=== PATIENT | female | born 1950 | race Caucasian/White ===

== ENCOUNTER → 2016-10-16 | Outpatient (CLI) | payer MEDICARE ==
--- NOTE | 2016-10-16 10:05 | REPMRS ---
Patient History The patient states she had a clinical breast exam in 09/2016. Patient is postmenopausal. No known family history of cancer. Excisional biopsy of the right breast, 1975. Digital Woman Screen Mammo: October 16, 2016 - Exam #: [id number] Bilateral CC and MLO view(s) were taken. Technologist: Emily Alexander, Technologist Prior study comparison: November 17, 2014, digital woman screen mammo performed at [facility]. 2013, bilateral digital mammo screening bilat, performed at [facility]. FINDINGS: There are scattered fibroglandular densities. There has been no change in the appearance of the mammogram from the prior studies. There is a mild amount of residual fibroglandular tissue which is fairly symmetric. There is no interval development of dominant mass, architectural distortion, or clustered microcalcification suggestive of malignancy. ASSESSMENT: BI-RADS/ACR category 1 mammogram. Negative. Recommendation Routine screening mammogram in 1 year (for women over age 40). This mammogram was interpreted with the aid of an FDA-approved computer-aided dectection system. Electronically Signed By: Matt Nagel MD 10/16/16 [id number]
== END ==
LOC: M WHC 09:03
PROVIDERS: ATTEND Nurse Practitioner Family
DX: Z01.419 Encounter for gynecological examination (general) (routine) without abnormal findings (principal); Z12.31 Encounter for screening mammogram for malignant neoplasm of breast; Z78.0 Asymptomatic menopausal state; Z12.12 Encounter for screening for malignant neoplasm of rectum
CPT/HCPCS: 82270; G0101; G0202

== ENCOUNTER → 2017-02-11 | Outpatient (CLI) | payer MEDICARE ==
[~2017-02-11] VITALS: Ht 175.3 cm; Wt 90.3 kg
[~2017-02-11] MED LIST: BIOT50004 PO; CENT1TAB PO; LIDOCAINE 2% INJ 100 MG/5 ML SDV (FOR ANES.) As Ordered ONE; LISI20TA PO; NS 1,000 ML IV ONE; PROPOFOL 200 MG/20 ML VIAL As Ordered ONE; TUMS1000 PO; VITA100067 PO; VITA500T3 PO
--- NOTE | 2017-02-11 13:26 | ROOR ---
Patient Name: Sadia Shields Procedure Date: 02/11/2017 1:07 PM Date of : 1950 Age: 66 Room: [facility] Gender: Female Note Status: Finalized Procedure: Total Colonoscopy to Cecum Indications: High risk colon cancer surveillance: Personal history of colonic polyps, Last colonoscopy: 2008 Providers: Srikanth Self MD Referring MD: Anson Sanchez MD Requesting Provider: Medicines: Monitored Anesthesia Care Complications: No immediate complications. Procedure: Pre-Anesthesia Assessment: - The heart rate, respiratory rate, oxygen saturations, blood pressure, adequacy of pulmonary ventilation, and response to care were monitored throughout the procedure. The Colonoscope was introduced through the anus and advanced to the cecum, identified by appendiceal orifice and ileocecal valve. The colonoscopy was performed without difficulty. The patient tolerated the procedure well. The quality of the bowel preparation was excellent. Findings: The perianal and digital rectal examinations were normal. Non-bleeding internal hemorrhoids were found during retroflexion. The hemorrhoids were small and Grade I (internal hemorrhoids that do not prolapse). Scattered small-mouthed diverticula were found in the recto-sigmoid colon, sigmoid colon and descending colon. The exam was otherwise without abnormality on direct and retroflexion views. Impression: - Non-bleeding internal hemorrhoids. - Diverticulosis in the recto-sigmoid colon, in the sigmoid colon and in the descending colon. - The examination was otherwise normal on direct and retroflexion views. - No specimens collected. - The exam was otherwise normal to the cecum. Recommendation: - Patient has a contact number available for emergencies. The signs and symptoms of potential delayed complications were discussed with the patient. Return to normal activities tomorrow. Written discharge instructions were provided to the patient. - High fiber diet. - Discharge patient to home. - Continue present medications. - Repeat colonoscopy in 5 years for surveillance. - Return to referring physician. - The findings and recommendations were discussed with the patient's family. Srikanth Self MD Srikanth Self MD 02/11/2017 1:25:55 PM This report has been signed electronically. Number of Addenda: 0 Note Initiated On: 02/11/2017 1:07 PM Estimated Blood Loss: Estimated blood loss: none.
[2017-02-11 14:00] VITALS: BP 102/59
== END | disposition home or self-care (01) ==
LOC: M OPP 12:21
PROVIDERS: ATTEND Internal Medicine Gastroenterology
DX: Z12.11 Encounter for screening for malignant neoplasm of colon (principal); K64.0 First degree hemorrhoids; K57.30 Diverticulosis of large intestine without perforation or abscess without bleeding; Z86.010 Personal history of colon polyps; I10 Essential (primary) hypertension; M54.9 Dorsalgia, unspecified; Z78.0 Asymptomatic menopausal state; G47.8 Other sleep disorders; R06.83 Snoring; G47.30 Sleep apnea, unspecified; Z87.891 Personal history of nicotine dependence; Z79.899 Other long term (current) drug therapy

== ENCOUNTER → 2017-12-10 | Outpatient (REF) | payer MEDICARE ==
[2017-12-10 11:50] LABS: HEMATOCRIT 45.4 % (36.0-47.0); HEMOGLOBIN 15.4 g/dl (12.0-15.5); MEAN CORPUSCULAR HGB CONC 33.9 g/dl (32.0-36.5); MEAN CORPUSCULAR VOLUME 94.4 fl (80.0-96.0); PLATELET COUNT, AUTOMATED 293 10^3/uL (150-450); RED BLOOD COUNT 4.81 10^6/uL (4.00-5.40); WHITE BLOOD COUNT 9.3 10^3/uL (4.0-10.0)
[2017-12-10 11:54] LABS: APPEARANCE, URINE HAZY (CLEAR); BACTERIA, URINE AUTO 1+ (NEGATIVE); BILIRUBIN, URINE AUTO NEGATIVE (NEGATIVE); BLOOD, URINE BLOOD NEGATIVE (NEGATIVE); COLOR, URINE YELLOW (YELLOW); GLUCOSE, URINE (UA) AUTO NEGATIVE (NEGATIVE); KETONE, URINE AUTO NEGATIVE (NEGATIVE); LEUKOCYTE ESTERASE, URINE AUTO 3+ (NEGATIVE); MUCUS, URINE SMALL (NEGATIVE); NITRITE, URINE AUTO NEGATIVE (NEGATIVE); PROTEIN, URINE AUTO NEGATIVE (NEGATIVE); RBC, URINE AUTO 4 /HPF (0-3); SPECIFIC GRAVITY URINE AUTO 1.015 (1.002-1.035); SQUAMOUS EPITHELIAL CELL UR AU 2 /HPF (0-6); UROBILINOGEN, URINE AUTO 0.2 mg/dL (0.0-2.0); WBC, URINE AUTO 2 /HPF (0-3)
[2017-12-10 12:19] LABS: ALBUMIN 3.7 GM/DL (3.2-5.2); ALBUMIN/GLOBULIN RATIO 0.95 (1.00-1.93); ALKALINE PHOSPHATASE 79 U/L (45-117); ALT/SGPT 29 U/L (12-78); ANION GAP 7 MEQ/L (8-16); AST/SGOT 21 U/L (7-37); BILIRUBIN,TOTAL 0.5 MG/DL (0.2-1.0); BLOOD UREA NITROGEN 20 MG/DL (7-18); CALCIUM LEVEL 9.3 MG/DL (8.8-10.2); CARBON DIOXIDE LEVEL 27 MEQ/L (21-32); CHLORIDE LEVEL 110 MEQ/L (98-107); CHOLESTEROL LEVEL 202 MG/DL (<200); CHOLESTEROL RISK RATIO 4.122 (<5); CREATININE FOR GFR 0.88 MG/DL (0.55-1.30); GLOMERULAR FILTRATION RATE > 60.0 (>45); GLUCOSE, FASTING 105 MG/DL (70-100); HDL CHOLESTEROL 49 MG/DL (>40); LDL CHOLESTEROL 102.2 MG/DL (<100); NON-HDL-C 153 MG/DL; POTASSIUM SERUM 4.7 MEQ/L (3.5-5.1); SODIUM LEVEL 144 MEQ/L (136-145); TOTAL PROTEIN 7.6 GM/DL (6.4-8.2); TRIGLYCERIDES LEVEL 254 MG/DL (<150)
[2017-12-10 12:29] LABS: MALB URINE SIEMENS 10.3 MG/L
== END ==
LOC: M SFHCPLAZ 09:04
DX: R41.3 Other amnesia (principal); I10 Essential (primary) hypertension; E78.00 Pure hypercholesterolemia, unspecified; R73.01 Impaired fasting glucose
CPT/HCPCS: 80053

== ENCOUNTER → 2017-12-16 | Outpatient (CLI) | payer MEDICARE | LOC: M WHC 13:06 | DX: Z12.31 Encounter for screening mammogram for malignant neoplasm of breast (principal) | CPT/HCPCS: 77067 ==

== ENCOUNTER → 2017-12-27 | Outpatient (CLI) | payer MEDICARE | LOC: M SLEEP HO 09:20 | DX: R29.818 Other symptoms and signs involving the nervous system (principal) | CPT/HCPCS: G0399 ==

== ENCOUNTER → 2018-11-20 | Outpatient (REF) | payer MEDICARE ==
[~2018-11-20] MED LIST changes: -LIDOCAINE 2% INJ 100 MG/5 ML SDV (FOR ANES.) As Ordered ONE; -NS 1,000 ML IV ONE; -PROPOFOL 200 MG/20 ML VIAL As Ordered ONE
== END ==
LOC: M SFHCPLAZ 18:30
PROVIDERS: ATTEND Dermatology
DX: C44.329 Squamous cell carcinoma of skin of other parts of face (principal); L57.0 Actinic keratosis; L57.8 Other skin changes due to chronic exposure to nonionizing radiation

== ENCOUNTER → 2018-12-04 | Outpatient (REF) | payer MEDICARE ==
[2018-12-04 11:55] LABS: HEMATOCRIT 46.7 % (36.0-47.0); HEMOGLOBIN 14.9 g/dl (12.0-15.5); MEAN CORPUSCULAR HEMOGLOBIN 30.8 pg (27.0-33.0); MEAN CORPUSCULAR HGB CONC 31.9 g/dl (32.0-36.5); MEAN CORPUSCULAR VOLUME 96.7 fl (80.0-96.0); PLATELET COUNT, AUTOMATED 285 10^3/uL (150-450); RED BLOOD COUNT 4.83 10^6/uL (4.00-5.40)
[2018-12-04 12:41] LABS: ALT/SGPT 49 U/L (12-78); BILIRUBIN,TOTAL 0.6 MG/DL (0.2-1.0); BLOOD UREA NITROGEN 28 MG/DL (7-18); CALCIUM LEVEL 9.6 MG/DL (8.8-10.2); CARBON DIOXIDE LEVEL 27 MEQ/L (21-32); CHLORIDE LEVEL 108 MEQ/L (98-107); CHOLESTEROL LEVEL 198 MG/DL (<200); CHOLESTEROL RISK RATIO 3.355 (<5); CREATININE FOR GFR 0.91 MG/DL (0.55-1.30); GLOMERULAR FILTRATION RATE > 60.0 (>39); GLUCOSE, FASTING 94 MG/DL (70-100); HDL CHOLESTEROL 59 MG/DL (>40); LDL CHOLESTEROL 120 MG/DL (<100); MAGNESIUM LEVEL 2.1 MG/DL (1.8-2.4); NON-HDL-C 139 MG/DL; POTASSIUM SERUM 4.4 MEQ/L (3.5-5.1); SODIUM LEVEL 142 MEQ/L (136-145); THYROID STIMULATING HORMONE 0.332 uIU/ML (0.358-3.740); TOTAL 25(OH) VITAMIN D 55.7 NG/ML (30.0-100.0); TOTAL PROTEIN 7.4 GM/DL (6.4-8.2); TRIGLYCERIDES LEVEL 97 MG/DL (<150)
== END ==
LOC: M SFHCPLAZ 08:54
PROVIDERS: ATTEND Internal Medicine
DX: K21.9 Gastro-esophageal reflux disease without esophagitis (principal); Z86.010 Personal history of colon polyps; I10 Essential (primary) hypertension; E78.00 Pure hypercholesterolemia, unspecified; F34.1 Dysthymic disorder; Z00.00 Encounter for general adult medical examination without abnormal findings; M85.89 Other specified disorders of bone density and structure, multiple sites; Z79.899 Other long term (current) drug therapy

== ENCOUNTER → 2018-12-24 | Outpatient (CLI) | payer MEDICARE ==
--- NOTE | 2018-12-24 11:38 | REPMRS ---
Patient History The patient states she had a clinical breast exam in 11/2018. Patient is postmenopausal and has history of basal and squamous cell skin cancer at age 66. No known family history of cancer. Excisional biopsy of the right breast, 1975. No Hormone Replacement Therapy 3D TOMOSYNTHESIS WAS PERFORMED. Digital Woman Screen Mammo: December 24, 2018 - Exam #: [id number] Bilateral CC and MLO view(s) were taken. Technologist: Emily Alexander, Technologist Prior study comparison: December 16, 2017, digital woman screen mammo performed at [facility]. October 16, 2016, digital woman screen mammo performed at [facility]. FINDINGS: The breast tissue is heterogeneously dense. This may lower the sensitivity of mammography. There has been no change in the appearance of the mammogram from the prior studies. There is a moderate amount of residual fibroglandular tissue which is fairly symmetric. There is no interval development of dominant mass, areas of architectural distortion, or clustered microcalcification typical of malignancy. Assessment: BI-RADS/ACR category 1 mammogram. Negative Mammogram. Recommendation Routine screening mammogram in 1 year (for women over age 40). This mammogram was interpreted with the aid of an FDA-approved computer-aided dectection system. Electronically Signed By: Matt Nagel MD 12/24/18 [id number]
== END ==
LOC: M WHC 09:30
PROVIDERS: ATTEND Nurse Practitioner Family
DX: Z01.419 Encounter for gynecological examination (general) (routine) without abnormal findings (principal); Z12.31 Encounter for screening mammogram for malignant neoplasm of breast; Z78.0 Asymptomatic menopausal state; Z85.828 Personal history of other malignant neoplasm of skin; Z86.018 Personal history of other benign neoplasm
CPT/HCPCS: 77063; 77067; G0101

== ENCOUNTER → 2019-01-14 | Outpatient (CLI) | payer MEDICARE ==
--- NOTE | 2019-01-15 13:30 | DEXA ---
AP SPINE L1 - L4 0.893 -2.4 -0.8 LT FEMUR TOTAL 0.768 -1.9 -0.4 LT NECK 0.753 -2.0 -0.4 RT FEMUR TOTAL 0.767 -1.9 -0.4 RT NECK 0.796 -1.7 0.0 TOTAL BODY TOTAL OTHER COMMENTS: There is low bone density of the spine and hips. The density of the spine has decreased 5.3% since the initial exam on 12/13/2003. The spine density has decreased 2.0% since the most recent exam on 11/17/2014. The density of the left hip has decreased 1.0% since the initial exam on 12/13/2003. The density of the left hip has increased 4.9% since the most recent exam on 11/17/2014. The density of the right hip has decreased 0.1% since the initial exam on 12/13/2003. The density of the right hip has increased or 4.4% since the most recent exam on 11/17/2014. FOLLOW-UP: Recommendation for the next bone density exam: 2 years. MYRA
== END ==
LOC: M WHC 09:22
PROVIDERS: ATTEND Internal Medicine
DX: M85.89 Other specified disorders of bone density and structure, multiple sites (principal)

== ENCOUNTER → 2019-12-09 | Outpatient (REF) | payer MEDICARE ==
[~2019-12-09] MED LIST changes: +CYAN500T8 PO; -LISI20TA PO; +LISI20TA19 PO; +TRAM50TA2 PO; -VITA500T3 PO
[2019-12-09 13:27] LABS: HEMATOCRIT 46.2 % (36.0-47.0); MEAN CORPUSCULAR HEMOGLOBIN 30.9 pg (27.0-33.0); MEAN CORPUSCULAR HGB CONC 32.5 g/dl (32.0-36.5); MEAN CORPUSCULAR VOLUME 95.3 fl (80.0-96.0); PLATELET COUNT, AUTOMATED 298 10^3/uL (150-450); RED BLOOD COUNT 4.85 10^6/uL (4.00-5.40); WHITE BLOOD COUNT 7.8 10^3/uL (4.0-10.0)
[2019-12-09 15:34] LABS: ALBUMIN 3.6 GM/DL (3.2-5.2); BILIRUBIN,TOTAL 0.6 MG/DL (0.2-1.0); CALCIUM LEVEL 9.4 MG/DL (8.8-10.2); CHOLESTEROL RISK RATIO 4.58 (<5); CREATININE FOR GFR 0.99 MG/DL (0.55-1.30); FREE T4 1.24 NG/DL (0.76-1.46); GLOMERULAR FILTRATION RATE 58.9 (>39); MAGNESIUM LEVEL 2.3 MG/DL (1.8-2.4); POTASSIUM SERUM 4.5 MEQ/L (3.5-5.1); THYROID STIMULATING HORMONE 0.276 uIU/ML (0.358-3.740); TOTAL PROTEIN 7.7 GM/DL (6.4-8.2)
[2019-12-09 15:35] LABS: TOTAL 25(OH) VITAMIN D 36.8 NG/ML (30.0-100.0)
== END ==
LOC: M SFHCPLAZ 09:43
PROVIDERS: ATTEND Internal Medicine
DX: M85.89 Other specified disorders of bone density and structure, multiple sites (principal); K21.9 Gastro-esophageal reflux disease without esophagitis; I10 Essential (primary) hypertension; R79.89 Other specified abnormal findings of blood chemistry; E78.00 Pure hypercholesterolemia, unspecified

== ENCOUNTER 2019-12-10 13:37 | Emergency (ER) | payer MEDICARE ==
[~2019-12-10] VITALS: Ht 175.3 cm; Wt 92.1 kg
[~2019-12-10 13:37] MED LIST changes: -TRAM50TA2 PO
[2019-12-10] MEDS ORDERED: NS 1,000 ML IV ONE (15:00)
[2019-12-10] MEDS ORDERED: ONDANSETRON 4MG/2ML VIAL IV ONE (15:00)
[2019-12-10] MEDS ORDERED: MORPHINE 4 MG/ML 1ML VIAL/SYRINGE (J2270) IV ONE (15:00)
--- NOTE | 2019-12-10 15:00 | REP ---
REASON: pain, after trauma. There is a Colles fracture with a probable additional chip fracture of the dorsal surface of the lunate. The Colles fracture is comminuted and rather marked. Consider followup with CT for further assessment of the additional osseous structures. Electronically Signed by Radu Noe DO 12/10/2019 04:06 P
[2019-12-10] MEDS ORDERED: BOOSTRIX/ADACEL VACCINE (DIPHTH/PERTUSS/ACELL/TETANUS) 0.5ML SYR IM ONE (15:15)
[2019-12-10] MEDS ORDERED: LIDOCAINE W/EPINEPHRINE 1% 20ML VIAL SC ONE (15:15)
[2019-12-10] MEDS ORDERED: NS 1,000 ML IV SCH (15:20)
[2019-12-10] MEDS ORDERED: LIDOCAINE 1% MDV 20ML VIAL As Ordered ONE (15:43)
[2019-12-10] MEDS ORDERED: KETAMINE HCL 200 MG/20 ML VIAL IV ONE (16:00)
[2019-12-10] MEDS ORDERED: OMEPRAZOLE 20 MG CAP PO ONE (16:30)
[2019-12-10] MEDS ORDERED: propofoL 200 MG/20 ML VIAL As Ordered ONE (16:31)
[2019-12-10] MEDS ORDERED: propofoL 200 MG/20 ML VIAL IV ONE (17:00)
[2019-12-10] MEDS ORDERED: TRAM50TA2 PO (17:20)
--- NOTE | 2019-12-10 18:00 | REP ---
REASON: Status post reduction. AP and lateral views were obtained. There is overlying casting material in place which obscures the bony detail. The previously described Colles fracture has been reduced. The alignment is near anatomical. Electronically Signed by Radu Noe DO 12/10/2019 06:10 P
[2019-12-10 18:40] VITALS: BP 125/71
--- NOTE | 2019-12-10 22:20 | ECGEPIP ---
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 Order Number: [id number] Reading MD: Scar Mckeon Measurements Intervals [place] Rate: 77 P: 66 TN: 178 QRS: 36 QRSD: 97 T: 51 QT: 410 QTc: 465 Interpretive Statements SINUS RHYTHM NSTTW ABNORMALITIES NO PRIORS FOR COMPARISON Electronically Signed on 12-10-2019 22:20:38 EDT by Scar Mckeon
--- NOTE | 2019-12-11 05:48 | ER ---
DATE OF CONSULTATION: 12/10/2019 Patient was seen in the emergency room (ER) at the request of the ER to evaluate fracture of wrist. HISTORY OF PRESENT ILLNESS: Sadia is an otherwise healthy 69-year-old female who was working, cutting a lawn, and pushing a mower, stepped in a hole, fell on her right upper extremity, and injured the wrist, had immediate pain and deformity, and was brought into the emergency room for further evaluation. The injury happened earlier today. Describes the pain as quite significant. Denies numbness or tingling. Never broke the wrist before. Reporting only this injury; not reporting other injuries. Patient ER survey was reviewed and remanded. Patient's imaging studies revealed a displaced distal radius fracture. Appears to be perhaps slightly intra-articular at the ulnar border of the distal radius; otherwise, not intra-articular. Colles type fracture. CLINICAL EXAM: She is alert, oriented, and cooperative. Mood and affect are appropriate. She appears to be younger than stated age of 69. Constitutional: She is well developed and well nourished, well groomed. Psychiatric: Judgment and insight are appropriate, and she is very stoic. She is not short of breath. There is no abdominal distension. She has healthy skin face, upper, lower extremities. Neurologic: No focal deficit. Musculoskeletal: Gross deformity of the right upper extremity. Dorsal displacement of the wrist. Neurologically intact. Does appreciate light touch. No trauma about the elbow. No trauma on the contralateral side. IMPRESSION: Right wrist Colles fracture, displaced. RECOMMENDATIONS: I discussed the patient's care with Dr. Nina Ferrera in the ER. ER personnel assisted with conscious sedation. I did administer a hematoma block dorsally, 1% lidocaine 3 mL. Next, once the patient was adequately sedated, I implemented a reduction maneuver of right wrist. I then placed the patient in a long-arm fiberglass cast. We then obtained AP and lateral x-rays in the long-arm cast, which reflected near anatomic reduction of the right distal radius. ADDITIONAL RECOMMENDATIONS: Pain control will be provided by the ER. That was discussed. Followup in the office next week for repeat imaging to make sure there is no loss of reduction will be accomplished. The patient is comfortable with that plan. We talked about loss of reduction. If there is loss of reduction, she would be an operative candidate for volar plating of the right wrist. Patient comfortable with plan.
--- NOTE | 2019-12-12 20:12 | CR ---
DATE OF CONSULTATION: 12/10/2019 REASON FOR REFERRAL: Right wrist displaced distal radius fracture. PAST MEDICAL HISTORY: 1. Hypertension 2. Denies previous injury to this wrist MEDICATIONS: - lisinopril one by mouth daily - ndke-ved-thzxnas vitamins. ALLERGIES: No known drug allergies. (NKDA) HISTORY OF PRESENT ILLNESS: This is a 69-year-old female patient who earlier today was weed whacking, step walking backwards, she stepped in a hole and caught herself on the right wrist. She then presented to be a [facility] Emergency Room where she was found to have a displaced comminuted distal radius fracture and orthopedic consult was made. SOCIAL HISTORY: The patient is a nonsmoker. Denies alcohol use. FAMILY HISTORY: Noncontributory. REVIEW OF SYSTEMS: Denies fever, chills, chest pain, shortness breath, nausea, vomiting, diarrhea. Denies numbness or tingling in the hand or upper extremity. PHYSICAL EXAMINATION: Vital signs: Temperature 96.1, pulse 81, respirations 16, blood pressure 106/77, pulse ox 96% on room air. She is a well-developed, well-nourished 69-year-old female patient in no apparent distress. She appears comfortable. She is normocephalic and atraumatic. She has nonlabored breathing and appropriate mood and affect. Examination of the right upper extremity shows a right wrist in a fiberglass splint with the exposed skin intact and intact neurovascular status. She does have flexion and extension of the fingers, some weakness in the interosseous muscles, but motor function is intact. Skin overlying the injury shows no breaks or evidence of open fracture. Review of x-rays taken of the right wrist show a right wrist Colles fracture with possible chip fracture of the dorsal lunate; this is comminuted and significantly displaced. ASSESSMENT/PLAN: Right wrist displaced Colles fracture. I discussed with the patient the plan going forward. Dr. Silver Mehta, who I reviewed the patient with, is going to reduce this fracture in the emergency department today and will follow up with the patient in the office for surveillance x-rays. I did discuss with her that the risk with a fracture like this without the reduction maybe lost or may not be able to be satisfactorily achieved and may require operative intervention. She voiced her understanding of this. We will get her ready for closed reduction and casting today in the emergency department and she will follow up in our office on Saturday for further care.
== END 2019-12-10 19:01 | disposition home or self-care (01) ==
LOC: M ED 13:37
DX: S52.531A Colles' fracture of right radius, initial encounter for closed fracture (principal); S62.124A Nondisplaced fracture of lunate [semilunar], right wrist, initial encounter for closed fracture; S60.511A Abrasion of right hand, initial encounter; R55 Syncope and collapse; W18.39XA Other fall on same level, initial encounter; Y92.89 Other specified places as the place of occurrence of the external cause; Y93.H2 Activity, gardening and landscaping; Y99.0 Civilian activity done for income or pay; I10 Essential (primary) hypertension; Z79.899 Other long term (current) drug therapy; Z23 Encounter for immunization
CPT/HCPCS: 25605; 73100; 73110; 90471; 90715; 93005; 93041; 96361; 96374; 99156; 99285; J2405

== ENCOUNTER → 2020-01-04 | Outpatient (REF) | payer MEDICARE ==
[~2020-01-04] MED LIST changes: +TRAM50TA2 PO
== END ==
LOC: M LAB REF 18:18
PROVIDERS: ATTEND Dermatology
DX: L57.0 Actinic keratosis (principal)

== ENCOUNTER → 2020-03-09 | Outpatient (CLI) | payer MEDICARE ==
[~2020-03-09] MED LIST changes: -LISI20TA19 PO; +LISI20TA35 PO
--- NOTE | 2020-03-24 17:32 | REPMRS ---
Patient History The patient states she had a clinical breast exam in 02/2020. Patient is postmenopausal and has history of other cancer at age 66. No known family history of cancer. Excisional biopsy of the right breast, 1976. No Hormone Replacement Therapy Digital Woman Screen Mammo: March 09, 2020 - Exam #: [id number] Bilateral CC and MLO view(s) were taken. Technologist: Pretty Wilson, Technologist Prior study comparison: December 24, 2018, bilateral digital woman screen mammo performed at [facility]. December 16, 2017, digital woman screen mammo performed at [facility]. October 16, 2016, digital woman screen mammo performed at [facility]. FINDINGS: There are scattered fibroglandular densities. The Volpara volumetric breast density category is:B. There has been no change in the appearance of the mammogram from the prior studies. There is a mild amount of scattered fibroglandular density which is fairly symmetric. There is no interval development of dominant mass, architectural distortion, or grouped microcalcification suggestive of malignancy. 3-D tomosynthesis shows no additional findings. Assessment: BI-RADS/ACR category 1 mammogram. Negative Mammogram. Recommendation Routine screening mammogram of both breasts in 1 year (for women over age 40). This patient's Lifetime Breast Cancer Risk is estimated at 5.6 %. This mammogram was interpreted with the aid of an FDA-approved computer-aided dectection system. Electronically Signed By: Rigo Long MD 03/24/20 [id number]
== END ==
LOC: M WHC 16:47
PROVIDERS: ATTEND Nurse Practitioner Family
DX: Z12.31 Encounter for screening mammogram for malignant neoplasm of breast (principal); Z78.0 Asymptomatic menopausal state; Z85.89 Personal history of malignant neoplasm of other organs and systems; Z86.018 Personal history of other benign neoplasm
CPT/HCPCS: 77063; 77067; G0463

== ENCOUNTER → 2020-05-04 | Outpatient (CLI) | payer MEDICARE ==
--- NOTE | 2020-05-05 14:36 | SLEEPCENT ---
DATE: 05/04/2020 ORDERED BY: Rochelle Interiano Nocturnal polysomnography was performed for evaluation of sleep physiology in this patient with a prior history of obstructive sleep apnea. There was 7 hours and 59 minutes of data reviewed. There was 183 minutes of sleep identified. Sleep latency was prolonged at 60 minutes. REM sleep was not achieved. Overall sleep architecture was poor with fragmentation. The sleep efficiency was only 38.6%. Electrocardiogram showed a sinus rhythm with an average heart rate of 58 beats per minute. Occasional premature ventricular contractions (PVCs) were identified. EEG showed some coarsening in background. No focal events were seen. There were normal waveforms for wake and sleep. There were 16 respiratory events identified of 10 seconds in duration or greater, for an apnea-hypopnea index of 22. The events were primarily obstructive, not exclusive to sleep stage nor body posture. Arousals from respiratory events occurred 26.4 times per hour when arousals from snoring were included. There was some limb activity. Limb movement arousal index was 7.9. Oxygen desaturations were seen below 90%. IMPRESSION: Obstructive sleep apnea syndrome (G47.33). Apnea-hypopnea index 22.0. RECOMMENDATION: The patient should be encouraged to return to the sleep disorder center for pressure therapy. In the interim, alcohol and sedative avoidance should be practiced and caution exercised during the operation of motor vehicles. MYRA
== END ==
LOC: M SLEEP 20:00
PROVIDERS: ATTEND Nurse Practitioner Adult Health
DX: G47.30 Sleep apnea, unspecified (principal)

== ENCOUNTER → 2020-05-12 | Outpatient (CLI) | payer MEDICARE ==
--- NOTE | 2020-05-18 10:00 | SLEEPCENT ---
DATE: 05/12/2020 ORDERED BY: Rochelle Interiano NP Nocturnal polysomnography was performed for the titration of pressure therapy in this patient with obstructive sleep apnea syndrome, apnea hypopnea index of 22. For testing, the patient was fit with a [employer] and Torrential Simplus full face mask of small size, 4 cm of water pressure were applied to the circuit, and the lights were extinguished. Seven hours and 17 minutes of data were reviewed. There were 189.5 minutes of sleep identified. Sleep latency was prolonged at 46 minutes. REM latency was prolonged at 249 minutes. Sleep architecture showed poor progression early on, improvement was seen later in the study. Overall sleep efficiency was 45.2% due to wake after sleep onset. The electrocardiogram showed a sinus rhythm with an average heart rate of 46 beats per minute. EEG showed normal waveforms for awake and sleep. Respiratory events were fully palliated with CPAP at a pressure of +5 and remaining measures of the sleep physiology were normal. IMPRESSIONS: Obstructive sleep apnea syndrome (G47.33). RECOMMENDATION: Nightly use of pressure therapy 5 cm of water. MTDD
== END ==
LOC: M SLEEP 20:00
PROVIDERS: ATTEND Nurse Practitioner Adult Health
DX: G47.33 Obstructive sleep apnea (adult) (pediatric) (principal)

== ENCOUNTER → 2020-07-06 | Outpatient (CLI) | payer MEDICARE ==
[~2020-07-06] MED LIST changes: +CYAN500T14 PO; -CYAN500T8 PO
== END ==
LOC: M LABSMTC 13:25
PROVIDERS: ATTEND Ophthalmology
DX: Z01.812 Encounter for preprocedural laboratory examination (principal); Z11.59 Encounter for screening for other viral diseases

== ENCOUNTER → 2020-12-05 | Outpatient (REF) | payer MEDICARE ==
[2020-12-05 14:13] LABS: HEMATOCRIT 46.1 % (36.0-47.0); HEMOGLOBIN 14.8 g/dl (12.0-15.5); MEAN CORPUSCULAR HEMOGLOBIN 31.1 pg (27.0-33.0); MEAN CORPUSCULAR HGB CONC 32.1 g/dl (32.0-36.5); MEAN CORPUSCULAR VOLUME 96.8 fl (80.0-96.0); PLATELET COUNT, AUTOMATED 297 10^3/uL (150-450); RED BLOOD COUNT 4.76 10^6/uL (4.00-5.40); WHITE BLOOD COUNT 7.5 10^3/uL (4.0-10.0)
[2020-12-05 14:49] LABS: ALBUMIN 3.5 GM/DL (3.2-5.2); ALT/SGPT 53 U/L (12-78); BILIRUBIN,TOTAL 0.4 MG/DL (0.2-1.0); BLOOD UREA NITROGEN 23 MG/DL (7-18); CARBON DIOXIDE LEVEL 30 MEQ/L (21-32); CHLORIDE LEVEL 112 MEQ/L (98-107); CHOLESTEROL LEVEL 217 MG/DL (<200); CHOLESTEROL RISK RATIO 3.807 (<5); CREATININE FOR GFR 0.95 MG/DL (0.55-1.30); FREE T3 3.1 PG/ML (2.2-4.0); FREE T4 1.12 NG/DL (0.76-1.46); GLOMERULAR FILTRATION RATE > 60.0 (>39); GLUCOSE, FASTING 96 MG/DL (70-100); HDL CHOLESTEROL 57 MG/DL (>40); LDL CHOLESTEROL 130 MG/DL (<100); MAGNESIUM LEVEL 2.4 MG/DL (1.8-2.4); NON-HDL-C 160 MG/DL; POTASSIUM SERUM 4.8 MEQ/L (3.5-5.1); SODIUM LEVEL 143 MEQ/L (136-145); THYROID STIMULATING HORMONE 0.277 uIU/ML (0.358-3.740); TOTAL PROTEIN 7.1 GM/DL (6.4-8.2); TRIGLYCERIDES LEVEL 150 MG/DL (<150)
[2020-12-05 16:04] LABS: CREATININE, URINE 92.7 MG/DL; MALB URINE SIEMENS 7.8 MG/L; MAU/CREAT RATIO 8.4 MCG/MG (0.0-30.0)
== END ==
LOC: M PLALAB 10:52
PROVIDERS: ATTEND Internal Medicine
DX: K21.9 Gastro-esophageal reflux disease without esophagitis (principal); I10 Essential (primary) hypertension; R79.89 Other specified abnormal findings of blood chemistry; E78.00 Pure hypercholesterolemia, unspecified; R73.01 Impaired fasting glucose

== ENCOUNTER → 2021-02-09 | Outpatient (REF) | payer MEDICARE | LOC: M LAB REF 14:08 | PROVIDERS: ATTEND Physician Assistant | DX: L57.0 Actinic keratosis (principal) | CPT/HCPCS: 11102; 88305; G0463 ==

== ENCOUNTER → 2021-10-09 | Outpatient (CLI) | payer MEDICARE | LOC: M WHC 09:05 | PROVIDERS: ATTEND Internal Medicine | DX: Z12.31 Encounter for screening mammogram for malignant neoplasm of breast (principal); Z13.820 Encounter for screening for osteoporosis; M81.0 Age-related osteoporosis without current pathological fracture; M85.851 Other specified disorders of bone density and structure, right thigh; M85.852 Other specified disorders of bone density and structure, left thigh; M85.88 Other specified disorders of bone density and structure, other site ==

== ENCOUNTER → 2021-11-17 | Outpatient (CLI) | payer MEDICARE ==
[2021-11-17 13:26] LABS: BASO # 0.1 10^3/uL (0.0-0.2); BASO % 0.7 % (0.0-1.0); EOS # 0.2 10^3/uL (0.0-0.5); EOS % 3.1 % (0.0-3.0); HEMATOCRIT 45.5 % (36.0-47.0); HEMOGLOBIN 15.1 g/dl (12.0-15.5); LYMPH # 2.2 10^3/uL (1.5-5.0); LYMPH % 30.3 % (24.0-44.0); MEAN CORPUSCULAR HEMOGLOBIN 31.7 pg (27.0-33.0); MEAN CORPUSCULAR HGB CONC 33.2 g/dl (32.0-36.5); MEAN CORPUSCULAR VOLUME 95.6 fl (80.0-96.0); MONO # 0.6 10^3/uL (0.0-0.8); MONO % 8.3 % (2.0-8.0); NEUTROPHILS # 4.2 10^3/uL (1.5-8.5); NEUTROPHILS % 57.2 % (36.0-66.0); PLATELET COUNT, AUTOMATED 286 10^3/uL (150-450); RED BLOOD COUNT 4.76 10^6/uL (4.00-5.40); WHITE BLOOD COUNT 7.4 10^3/uL (4.0-10.0)
[2021-11-17 13:49] LABS: HEMOGLOBIN A1c 5.5 %
[2021-11-17 14:07] LABS: ALBUMIN 3.7 GM/DL (3.2-5.2); ALT/SGPT 50 U/L (12-78); BILIRUBIN,TOTAL 0.5 MG/DL (0.2-1.0); BLOOD UREA NITROGEN 24 MG/DL (7-18); CALCIUM LEVEL 10.1 MG/DL (8.8-10.2); CARBON DIOXIDE LEVEL 27 MEQ/L (21-32); CHLORIDE LEVEL 111 MEQ/L (98-107); CHOLESTEROL LEVEL 228 MG/DL (<200); CHOLESTEROL RISK RATIO 4.384 (<5); CREATININE FOR GFR 0.95 MG/DL (0.55-1.30); CREATININE, URINE 74.8 MG/DL; FREE T3 3.1 PG/ML (2.2-4.0); FREE T4 1.09 NG/DL (0.76-1.46); GLOMERULAR FILTRATION RATE > 60.0 (>39); GLUCOSE, FASTING 101 MG/DL (70-100); HDL CHOLESTEROL 52 MG/DL (>40); LDL CHOLESTEROL 136 MG/DL (<100); MAGNESIUM LEVEL 2.3 MG/DL (1.8-2.4); MALB URINE SIEMENS 7.5 MG/L; NON-HDL-C 176 MG/DL; SODIUM LEVEL 145 MEQ/L (136-145); THYROID STIMULATING HORMONE 0.712 uIU/ML (0.358-3.740); TRIGLYCERIDES LEVEL 198 MG/DL (<150)
[2021-11-17 14:52] LABS: HEPATITIS C VIRUS ABY INDEX 0.1 INDEX (<0.8)
== END ==
LOC: M PLALAB 10:09
PROVIDERS: ATTEND Internal Medicine
DX: I10 Essential (primary) hypertension (principal); R73.01 Impaired fasting glucose; Z11.59 Encounter for screening for other viral diseases; R79.89 Other specified abnormal findings of blood chemistry; E78.00 Pure hypercholesterolemia, unspecified

== ENCOUNTER → 2021-11-17 | Outpatient (CLI) | payer MEDICARE | LOC: M PLALAB 10:10 | PROVIDERS: ATTEND Internal Medicine Endocrinology, Diabetes & Metabolism | DX: E05.00 Thyrotoxicosis with diffuse goiter without thyrotoxic crisis or storm (principal) ==

== ENCOUNTER → 2022-06-08 | Outpatient (CLI) | payer MEDICARE ==
[2022-06-08 15:39] LABS: FREE T4 1.23 NG/DL (0.76-1.46); THYROID STIMULATING HORMONE 0.512 uIU/ML (0.358-3.740)
[2022-06-11 09:55] LABS: TOTAL T3 123.2 NG/DL (60.0-181.0)
== END ==
LOC: M PLALAB 11:14
PROVIDERS: ATTEND Nurse Practitioner Family
DX: E05.00 Thyrotoxicosis with diffuse goiter without thyrotoxic crisis or storm (principal)

== ENCOUNTER → 2022-06-17 | Outpatient (CLI) | payer MEDICARE ==
[~2022-06-17] MED LIST changes: +FAMO20TA5 PO
== END ==
LOC: M LABSMTC 09:44
PROVIDERS: ATTEND Anesthesiology
DX: Z01.812 Encounter for preprocedural laboratory examination (principal); Z11.52 Encounter for screening for COVID-19

== ENCOUNTER 2022-06-20 10:00 | Day surgery (SDC) | payer MEDICARE ==
[~2022-06-20] VITALS: Ht 175.3 cm; Wt 83.9 kg
[~2022-06-20 10:00] MED LIST changes: +NS 1,000 ML IV ONE
[2022-06-20] MEDS ORDERED: LIDOCAINE 2% 100MG/5ML SDV (FOR ANES.) As Ordered ONE (12:05)
[2022-06-20 12:23] VITALS: BP 139/67
[2022-06-20] MEDS ORDERED: propofoL 200 MG/20 ML VIAL As Ordered ONE (12:35)
== END 2022-06-20 12:32 | disposition home or self-care (01) ==
LOC: M OPP 10:00
PROVIDERS: ATTEND Internal Medicine Gastroenterology
DX: R19.4 Change in bowel habit (principal); K64.0 First degree hemorrhoids; K57.30 Diverticulosis of large intestine without perforation or abscess without bleeding; I10 Essential (primary) hypertension; K21.9 Gastro-esophageal reflux disease without esophagitis; G47.30 Sleep apnea, unspecified; Z85.828 Personal history of other malignant neoplasm of skin; Z87.891 Personal history of nicotine dependence; Z79.899 Other long term (current) drug therapy

== ENCOUNTER → 2022-11-19 | Outpatient (CLI) | payer MEDICARE ==
[~2022-11-19] MED LIST changes: -NS 1,000 ML IV ONE
== END ==
LOC: M WHC 09:11
PROVIDERS: ATTEND Nurse Practitioner Family
DX: Z12.31 Encounter for screening mammogram for malignant neoplasm of breast (principal)

== ENCOUNTER → 2022-11-19 | Outpatient (REF) | payer MEDICARE | LOC: M SFHCWAGY 12:47 | PROVIDERS: ATTEND Nurse Practitioner Family | DX: Z12.4 Encounter for screening for malignant neoplasm of cervix (principal) ==

== ENCOUNTER → 2022-11-29 | Outpatient (CLI) | payer MEDICARE ==
[2022-11-29 13:34] LABS: HEMATOCRIT 46.6 % (36.0-47.0); HEMOGLOBIN 15.2 g/dl (12.0-15.5); MEAN CORPUSCULAR HEMOGLOBIN 31.2 pg (27.0-33.0); MEAN CORPUSCULAR HGB CONC 32.6 g/dl (32.0-36.5); MEAN CORPUSCULAR VOLUME 95.7 fl (80.0-96.0); PLATELET COUNT, AUTOMATED 271 10^3/uL (150-450); RED BLOOD COUNT 4.87 10^6/uL (4.00-5.40); WHITE BLOOD COUNT 7.2 10^3/uL (4.0-10.0)
[2022-11-29 13:37] LABS: ALBUMIN 3.9 G/DL (3.2-5.2); ALKALINE PHOSPHATASE 67 U/L (46-116); ALT/SGPT 25 U/L (7.0-40); AST/SGOT 23 U/L (<34); BILIRUBIN,TOTAL 0.7 MG/DL (0.3-1.2); BLOOD UREA NITROGEN 22 MG/DL (9-23); CALCIUM LEVEL 9.7 MG/DL (8.3-10.6); CARBON DIOXIDE LEVEL 29 MMOL/L (20-31); CHLORIDE LEVEL 107 MMOL/L (98-107); CHOLESTEROL LEVEL 185 MG/DL (<200); CREATININE FOR GFR 1.04 MG/DL (0.55-1.30); GLOMERULAR FILTRATION RATE 55.1 (>39); GLUCOSE, FASTING 97 MG/DL (74-106); HDL CHOLESTEROL 52.8 MG/DL (>40); LDL CHOLESTEROL 114.4 MG/DL (<100); NON-HDL-C 132.2 MG/DL; POTASSIUM SERUM 4.5 MMOL/L (3.5-5.1); SODIUM LEVEL 142 MMOL/L (136-145); TRIGLYCERIDES LEVEL 89 MG/DL (<150)
[2022-11-29 13:41] LABS: VITAMIN B12 LEVEL 1655 PG/ML (211-911)
[2022-11-29 13:43] LABS: THYROID STIMULATING HORMONE 0.334 uIU/ML (0.55-4.78); TOTAL 25(OH) VITAMIN D 51.4 NG/ML (20.0-100.0)
[2022-11-29 14:27] LABS: HEMOGLOBIN A1c 5.3 % (4.0-6.0)
[2022-11-29 16:48] LABS: C REACTIVE PROTEIN QUANTITATIV < 0.40 MG/DL (<1.0)
== END ==
LOC: M PLALAB 09:31
PROVIDERS: ATTEND Internal Medicine Hematology
DX: K76.0 Fatty (change of) liver, not elsewhere classified (principal); E78.00 Pure hypercholesterolemia, unspecified; R73.01 Impaired fasting glucose; R79.89 Other specified abnormal findings of blood chemistry; E05.00 Thyrotoxicosis with diffuse goiter without thyrotoxic crisis or storm; Z79.899 Other long term (current) drug therapy

== ENCOUNTER → 2022-11-29 | Outpatient (CLI) | payer MEDICARE ==
[2022-11-29 13:41] LABS: FREE T4 1.5 NG/DL (0.89-1.76); TOTAL T3 111.1 NG/DL (60.0-181.0)
[2022-11-29 13:44] LABS: THYROID STIMULATING HORMONE 0.325 uIU/ML (0.55-4.78)
== END ==
LOC: M PLALAB 09:29
PROVIDERS: ATTEND Nurse Practitioner Family
DX: E05.00 Thyrotoxicosis with diffuse goiter without thyrotoxic crisis or storm (principal)

== ENCOUNTER → 2023-02-13 | Outpatient (REF) | payer MEDICARE | LOC: M SFHCCAPE 14:23 | PROVIDERS: ATTEND Physician Assistant | DX: R10.9 Unspecified abdominal pain (principal) ==

== ENCOUNTER → 2023-12-09 | Outpatient (CLI) | payer MEDICARE ==
[~2023-12-09] MED LIST changes: -BIOT50004 PO; +BIOT5CAP8 PO
[2023-12-09 14:35] LABS: CALCIUM LEVEL 10.1 MG/DL (8.3-10.6); CREATININE FOR GFR 0.99 MG/DL (0.55-1.30); GLOMERULAR FILTRATION RATE 58.2 (>39); POTASSIUM SERUM 5.2 MMOL/L (3.5-5.1)
[2023-12-09 14:37] LABS: FREE T4 1.31 NG/DL (0.89-1.76)
[2023-12-09 14:38] LABS: THYROID STIMULATING HORMONE 0.455 uIU/ML (0.55-4.78); TOTAL 25(OH) VITAMIN D 67.2 NG/ML (20.0-100.0)
== END ==
LOC: M PLALAB 10:14
PROVIDERS: ATTEND Internal Medicine Endocrinology, Diabetes & Metabolism
DX: E05.00 Thyrotoxicosis with diffuse goiter without thyrotoxic crisis or storm (principal); M85.89 Other specified disorders of bone density and structure, multiple sites

== ENCOUNTER → 2023-12-09 | Outpatient (CLI) | payer MEDICARE ==
[2023-12-09 14:00] LABS: BASO # 0.1 10^3/uL (0.0-0.2); BASO % 0.8 % (0.0-1.0); EOS # 0.2 10^3/uL (0.0-0.5); HEMATOCRIT 46.9 % (36.0-47.0); HEMOGLOBIN 15.6 g/dl (12.0-15.5); LYMPH # 2.7 10^3/uL (1.5-5.0); LYMPH % 29.6 % (24.0-44.0); MEAN CORPUSCULAR HEMOGLOBIN 32.2 pg (27.0-33.0); MEAN CORPUSCULAR HGB CONC 33.3 g/dl (32.0-36.5); MEAN CORPUSCULAR VOLUME 96.9 fl (80.0-96.0); MONO # 0.6 10^3/uL (0.0-0.8); MONO % 6.9 % (2.0-8.0); NEUTROPHILS # 5.4 10^3/uL (1.5-8.5); NEUTROPHILS % 59.1 % (36.0-66.0); PLATELET COUNT, AUTOMATED 349 10^3/uL (150-450); RED BLOOD COUNT 4.84 10^6/uL (4.00-5.40); WHITE BLOOD COUNT 9.1 10^3/uL (4.0-10.0)
[2023-12-09 14:06] LABS: C REACTIVE PROTEIN QUANTITATIV < 0.40 MG/DL (<1.0)
[2023-12-09 14:08] LABS: ALBUMIN 3.7 G/DL (3.2-5.2); ALKALINE PHOSPHATASE 99 U/L (46-116); ALT/SGPT 43 U/L (7.0-40); AST/SGOT 30 U/L (<34); BILIRUBIN,TOTAL 0.6 MG/DL (0.3-1.2); BLOOD UREA NITROGEN 24 MG/DL (9-23); CALCIUM LEVEL 10.4 MG/DL (8.3-10.6); CARBON DIOXIDE LEVEL 29 MMOL/L (20-31); CHLORIDE LEVEL 108 MMOL/L (98-107); CHOLESTEROL LEVEL 220 MG/DL (<200); CREATININE FOR GFR 0.99 MG/DL (0.55-1.30); GLOMERULAR FILTRATION RATE 58.2 (>39); GLUCOSE, FASTING 108 MG/DL (74-106); HDL CHOLESTEROL 52.3 MG/DL (>40); LDL CHOLESTEROL 125.5 MG/DL (<100); NON-HDL-C 167.7 MG/DL; POTASSIUM SERUM 5.2 MMOL/L (3.5-5.1); SODIUM LEVEL 144 MMOL/L (136-145); THYROID STIMULATING HORMONE 0.458 uIU/ML (0.55-4.78); TOTAL 25(OH) VITAMIN D 67.5 NG/ML (20.0-100.0); TOTAL PROTEIN 7.3 G/DL (5.7-8.2); TRIGLYCERIDES LEVEL 211 MG/DL (<150)
[2023-12-09 14:10] LABS: FREE T4 1.31 NG/DL (0.89-1.76); VITAMIN B12 LEVEL 1190 PG/ML (211-911)
[2023-12-09 14:13] LABS: HEMOGLOBIN A1c 5.2 % (4.0-6.0)
[2023-12-09 14:25] LABS: MAU/CREAT RATIO 4.1 MCG/MG (0.0-30.0)
== END ==
LOC: M PLALAB 10:07
PROVIDERS: ATTEND Internal Medicine Hematology
DX: R73.01 Impaired fasting glucose (principal); Z79.899 Other long term (current) drug therapy

== ENCOUNTER → 2024-01-06 | Outpatient (CLI) | payer MEDICARE | LOC: M WHC 08:53 | PROVIDERS: ATTEND Internal Medicine Endocrinology, Diabetes & Metabolism | DX: Z13.820 Encounter for screening for osteoporosis (principal); Z12.31 Encounter for screening mammogram for malignant neoplasm of breast; M81.0 Age-related osteoporosis without current pathological fracture ==

== ENCOUNTER → 2024-01-06 | Outpatient (CLI) | payer MEDICARE | LOC: M WHC 08:51 | PROVIDERS: ATTEND Internal Medicine Hematology | DX: Z12.31 Encounter for screening mammogram for malignant neoplasm of breast (principal) ==

== ENCOUNTER → 2025-03-16 | Outpatient (CLI) | payer MEDICARE | LOC: M WHC 10:06 | PROVIDERS: ATTEND Student in an Organized Health Care Education/Training Program | DX: Z12.31 Encounter for screening mammogram for malignant neoplasm of breast (principal); R92.333 Mammographic heterogeneous density, bilateral breasts ==

== ENCOUNTER → 2025-04-27 | Outpatient (CLI) | payer MEDICARE ==
[2025-04-27 15:29] LABS: ALT/SGPT 43.0 U/L (7.0-40); AST/SGOT 34.0 U/L (<34); CALCIUM LEVEL 10.1 MG/DL (8.3-10.6); CARBON DIOXIDE LEVEL 30.0 MMOL/L (20-31); CHLORIDE LEVEL 103.0 MMOL/L (98-107); CHOLESTEROL LEVEL 150.0 MG/DL (<200); CHOLESTEROL RISK RATIO 2.82 (<5); CREATININE FOR GFR 1.01 MG/DL (0.55-1.30); FREE T4 2.18 NG/DL (0.89-1.76); GLOMERULAR FILTRATION RATE 57.7 (>39); LDL CHOLESTEROL 63.7 MG/DL (<100); NON-HDL-C 96.9 MG/DL; POTASSIUM SERUM 5.3 MMOL/L (3.5-5.1); SODIUM LEVEL 141.0 MMOL/L (136-145); TRIGLYCERIDES LEVEL 166.0 MG/DL (<150)
== END ==
LOC: M PLALAB 11:38
PROVIDERS: ATTEND Student in an Organized Health Care Education/Training Program
DX: E05.00 Thyrotoxicosis with diffuse goiter without thyrotoxic crisis or storm (principal); E78.5 Hyperlipidemia, unspecified

== ENCOUNTER → 2025-06-29 | Outpatient (CLI) | payer MEDICARE ==
[2025-06-29 14:32] LABS: CALCIUM LEVEL 10.3 MG/DL (8.3-10.6); CARBON DIOXIDE LEVEL 29.0 MMOL/L (20-31); CHLORIDE LEVEL 105.0 MMOL/L (98-107); CREATININE FOR GFR 0.97 MG/DL (0.55-1.30); GLOMERULAR FILTRATION RATE 60.6 (>39); POTASSIUM SERUM 5.0 MMOL/L (3.5-5.1); SODIUM LEVEL 143.0 MMOL/L (136-145)
[2025-06-29 14:35] LABS: THYROID PEROXIDASE ANTIBODY 32.0 U/ML (<60.0)
== END ==
LOC: M PLALAB 11:02
PROVIDERS: ATTEND Student in an Organized Health Care Education/Training Program
DX: E87.5 Hyperkalemia (principal); E05.00 Thyrotoxicosis with diffuse goiter without thyrotoxic crisis or storm

== ENCOUNTER → 2025-07-27 | Outpatient (CLI) | payer MEDICARE ==
[~2025-07-27] MED LIST changes: +PROHANCE 279.3MG/ML 15ML VIAL ONE; +PROHANCE 279.3MG/ML 5ML VIAL ONE
== END ==
LOC: M PLAIMG 07:35
PROVIDERS: ATTEND Student in an Organized Health Care Education/Training Program
DX: H47.292 Other optic atrophy, left eye (principal)
CPT/HCPCS: 70543; 70553; A9579